=== PATIENT | female | born 1940 | race Caucasian/White ===

== ENCOUNTER → 2021-05-13 | Outpatient (CLI) | payer OTHER ==
[~2021-05-13] MED LIST: ANTIHISTAMINE PO; B12INJ PO; ESTRACE2 M1 PO; ESTRACE2 MG PO; GLUCOSAMINE CH1 EAC7 PO; OMEGA 3-6-9 CO1 EACH PO; PROTEIN SUPPLEMENT PO; SUDAFED30 MG PO; THERA-M CAPLET1 EACH PO
== END ==
LOC: SJCVCIMAG 10:40
PROVIDERS: ATTEND Internal Medicine Cardiovascular Disease
DX: I08.8 Other rheumatic multiple valve diseases (principal); R00.2 Palpitations; I47.1 Supraventricular tachycardia; E78.00 Pure hypercholesterolemia, unspecified; K21.9 Gastro-esophageal reflux disease without esophagitis; Z88.0 Allergy status to penicillin; Z88.1 Allergy status to other antibiotic agents; Z88.8 Allergy status to other drugs, medicaments and biological substances; Z79.82 Long term (current) use of aspirin; Z79.899 Other long term (current) drug therapy; E78.5 Hyperlipidemia, unspecified